=== PATIENT | male | born 1980 | race Two or more races ===

== ENCOUNTER 2019-11-02 23:33 | Inpatient (IN) | payer MEDICAID, OTHER ==
[~2019-11-02] VITALS: Ht 165.1 cm; Wt 93.8 kg
[2019-11-03] MEDS ORDERED: cloNIDine HCL 0.1 MG TAB PO ONE
[2019-11-03 00:59] LABS: Basophils # (auto) 0.1 10 ^3/uL (0-0.2); Basophils % (auto) 0.9 % (0.0-2.0); Eosinophils # (auto) 0.3 10 ^3/uL (0-0.8); Eosinophils % (auto) 3.1 % (0.0-7.0); Hematocrit 45.3 % (41.0-53.0); Hemoglobin 15.1 g/dL (13.5-17.5); Lymphocytes # (auto) 2.9 10 ^3/uL (0.4-5.4); Lymphocytes % (auto) 31.2 % (10.0-50.0); Mean Corpuscular Hemoglobin 27.8 pg (28.0-32.0); Mean Corpuscular Hgb Conc. 33.2 g/dL (32.0-36.0); Mean Corpuscular Volume 83.6 fL (80.0-100.0); Monocytes # (auto) 0.6 10 ^3/uL (0-1.3); Monocytes % (auto) 6.1 % (0.0-12.0); Neutrophils # (auto) 5.5 10 ^3/uL (1.6-8.6); Neutrophils % (auto) 58.7 % (37.0-80.0); Nucleated Red Blood Cells % 0.2 %; Platelet Count (auto) 247 10^3/uL (140-450); Red Blood Cells 5.42 10^6/uL (4.5-5.90); Red Cell Distribution Width 13.5 % (11.8-14.3); White Blood Cell 9.3 10^3/uL (4.4-10.8)
[2019-11-03 01:10] LABS: Alanine Aminotransferase 37 U/L (16-61); Albumin 3.3 g/dL (3.4-5.0); Anion Gap 7 (5-15); Aspartate Aminotransferase 19 U/L (15-37); BUN/Creatinine Ratio 24.8; Blood Urea Nitrogen 25 mg/dL (7-18); Calcium 8.4 mg/dL (8.5-10.1); Carbon Dioxide 26 mmol/L (21-32); Chloride 106 mmol/L (98-107); GFR African American 105 mL/min; GFR Non-African American 87 mL/min; Glucose 117 mg/dL (74-106); Magnesium 2.3 mg/dL (1.6-2.6); Potassium 3.3 mmol/L (3.5-5.1); Sodium 139 mmol/L (136-145)
[2019-11-03 01:15] LABS: Alkaline Phosphatase 78 U/L (45-117); Bilirubin, Total 0.6 mg/dL (0.2-1.0); Total Protein 7.1 g/dL (6.4-8.2)
[2019-11-03] MEDS ORDERED: ASPirin 81 mg TAB PO ONE (01:15)
[2019-11-03] MEDS ORDERED: MORPHINE SULFATE 4 MG/ML SYR/VIAL IV ONE (01:15)
[2019-11-03] MEDS ORDERED: ONDANSETRON HCL 4 MG/2 ML VIAL IV ONE (01:15)
[2019-11-03 01:44] LABS: INR 1.04 (0.9-1.15); Partial Thromboplastin Time 23.6 sec (23.64-32.05)
[2019-11-03] MEDS ORDERED: levoFLOXacin 250 MG TAB PO ONE (05:00)
[2019-11-03] MEDS ORDERED: ACETAMINOPHEN 325 MG TAB PO PRN (06:00)
[2019-11-03] MEDS ORDERED: NITROGLYCERIN 0.4 MG SL TAB SL PRN (06:00)
[2019-11-03] MEDS ORDERED: DOCUSATE SOD 100 MG CAP PO PRN (06:00)
[2019-11-03] MEDS ORDERED: IPRATROPIUM BROM 0.5 MG/2.5ML INH SOL NEB PRN (06:00)
[2019-11-03] MEDS ORDERED: ALBUTEROL SULF 2.5 MG/0.5ML(0.5%) NEB SOLN NEB PRN (06:00)
[2019-11-03] MEDS ORDERED: DEXTROSE (50%) 50ML SYRG IV PRN ×3 (06:00→16:30)
[2019-11-03] MEDS ORDERED: ONDANSETRON HCL 4 MG/2 ML VIAL IV PRN (06:00)
[2019-11-03] MEDS ORDERED: MORPHINE SULF INJ 2 MG/ML SYRINGE 1ML IV PRN ×2 (06:00)
[2019-11-03 08:06] LABS: Potassium 3.4 mmol/L (3.5-5.1)
[2019-11-03 08:18] LABS: BUN/Creatinine Ratio 27.9; Calcium 8.4 mg/dL (8.5-10.1)
[2019-11-03 08:27] LABS: Basophils # (auto) 0 10 ^3/uL (0-0.2); Basophils % (auto) 0.4 % (0.0-2.0); Eosinophils # (auto) 0.1 10 ^3/uL (0-0.8); Eosinophils % (auto) 1.2 % (0.0-7.0); Hematocrit 42.2 % (41.0-53.0); Hemoglobin 14.4 g/dL (13.5-17.5); Lymphocytes # (auto) 1.1 10 ^3/uL (0.4-5.4); Mean Corpuscular Hemoglobin 28.5 pg (28.0-32.0); Mean Corpuscular Hgb Conc. 34.2 g/dL (32.0-36.0); Mean Corpuscular Volume 83.4 fL (80.0-100.0); Monocytes # (auto) 0.3 10 ^3/uL (0-1.3); Monocytes % (auto) 4.5 % (0.0-12.0); Neutrophils # (auto) 5.5 10 ^3/uL (1.6-8.6); Neutrophils % (auto) 77.9 % (37.0-80.0); Nucleated Red Blood Cells % 0.1 %; Platelet Count (auto) 224 10^3/uL (140-450); Red Blood Cells 5.06 10^6/uL (4.5-5.90); Red Cell Distribution Width 13.7 % (11.8-14.3)
[2019-11-03] MEDS: InsuLIN REG 1unit/0.01ml Soln (100units/ml) SC SCH ×4 (09:25→22:00)
[2019-11-03] MEDS: ACCU-CHEK COMFORT CURVE STRIP VI SCH ×4 (09:25→22:09)
[2019-11-03] MEDS: cefTRIAXone 1GM/50ML D5W 50 ML IV SCH (10:47)
[2019-11-03] MEDS: FUROSEMIDE 40 MG/4 ML VIAL IV SCH (10:49)
[2019-11-03 15:31] VITALS: BP 132/78
[2019-11-03] MEDS ORDERED: POTASSIUM EFFERVESENT TAB 25 MEQ PO ONE ×2 (16:00)
[2019-11-03] MEDS ORDERED: amLODIPine BESYLATE 5 MG TAB PO ONE (16:00)
[2019-11-03] MEDS ORDERED: cloNIDine HCL 0.1 MG TAB PO PRN (16:00)
[2019-11-03] MEDS ORDERED: FUROSEMIDE 40 MG/4 ML VIAL IV ONE (16:00)
[2019-11-03 16:04] VITALS: BP 135/79
[2019-11-03] MEDS ORDERED: InsuLIN REG 1unit/0.01ml Soln (100units/ml) SC SCH (17:00)
[2019-11-03] MEDS ORDERED: ACCU-CHEK COMFORT CURVE STRIP VI SCH (17:00)
[2019-11-03 17:22] VITALS: BP 135/79
[2019-11-03 19:36] VITALS: BP 128/97
[2019-11-03 22:00] VITALS: BP 134/97
[2019-11-04 02:17] LABS: Urine Bacteria NONE SEEN /hpf (None Seen); Urine Blood Negative /uL (Negative); Urine Specific Gravity 1.009 (1.001-1.035); Urine WBC <1 /hpf (0 - 3)
[2019-11-04 02:50] LABS: Alcohol, Urine < 3.0 mg/dL (0-10); Amphetamine Screen, Urine NEGATIVE (NEGATIVE); Barbiturate Scree,Urine NEGATIVE (NEGATIVE); Benzodiazephine Screen, Urine NEGATIVE (NEGATIVE); Cannabinoid Screen, Urine NEGATIVE (NEGATIVE); Cocaine Screen, Urine NEGATIVE (NEGATIVE); Opiate Scree,Urine NEGATIVE (NEGATIVE); Phencyclidine Screen, Urine NEGATIVE (NEGATIVE)
[2019-11-04 05:00] VITALS: BP 124/89
[2019-11-04 05:50] LABS: Basophils # (auto) 0.1 10 ^3/uL (0-0.2); Basophils % (auto) 0.9 % (0.0-2.0); Eosinophils # (auto) 0.2 10 ^3/uL (0-0.8); Eosinophils % (auto) 2.4 % (0.0-7.0); Hematocrit 42.7 % (41.0-53.0); Hemoglobin 14.4 g/dL (13.5-17.5); Lymphocytes # (auto) 2.7 10 ^3/uL (0.4-5.4); Lymphocytes % (auto) 30.9 % (10.0-50.0); Mean Corpuscular Hgb Conc. 33.7 g/dL (32.0-36.0); Monocytes # (auto) 0.6 10 ^3/uL (0-1.3); Monocytes % (auto) 7.2 % (0.0-12.0); Neutrophils # (auto) 5.2 10 ^3/uL (1.6-8.6); Neutrophils % (auto) 58.6 % (37.0-80.0); Nucleated Red Blood Cells % 0.2 %; Platelet Count (auto) 231 10^3/uL (140-450); Red Blood Cells 5.14 10^6/uL (4.5-5.90); Red Cell Distribution Width 13.9 % (11.8-14.3); White Blood Cell 8.9 10^3/uL (4.4-10.8)
[2019-11-04 06:14] LABS: Anion Gap 6 (5-15); Blood Urea Nitrogen 17 mg/dL (7-18); Calcium 8.7 mg/dL (8.5-10.1); Carbon Dioxide 28 mmol/L (21-32); Chloride 104 mmol/L (98-107); Glucose 100 mg/dL (74-106); Potassium 3.3 mmol/L (3.5-5.1); Sodium 138 mmol/L (136-145)
[2019-11-04 06:16] LABS: BUN/Creatinine Ratio 17.9; GFR African American 113 mL/min; GFR Non-African American 93 mL/min
[2019-11-04] MEDS: InsuLIN REG 1unit/0.01ml Soln (100units/ml) SC SCH ×2 (06:21→11:26)
[2019-11-04] MEDS: ACCU-CHEK COMFORT CURVE STRIP VI SCH ×4 (06:21→21:45)
[2019-11-04] MEDS: cefTRIAXone 1GM/50ML D5W 50 ML IV SCH (08:32)
[2019-11-04] MEDS: HYDROcodone-ACET 5/325MG TAB PO PRN ×2 (08:32→16:45)
[2019-11-04] MEDS: FUROSEMIDE 40 MG/4 ML VIAL IV SCH (08:32)
[2019-11-04] MEDS: POTASSIUM CHL 10 Meq TABLET PO SCH (08:33)
[2019-11-04 09:00] VITALS: BP 118/76
[2019-11-04] MEDS ORDERED: amLODIPine BESYLATE 5 MG TAB PO SCH (10:00)
[2019-11-04 13:00] VITALS: BP 113/83
[2019-11-04] MEDS ORDERED: POTASSIUM EFFERVESENT TAB 25 MEQ PO ONE (15:45)
[2019-11-04 17:00] VITALS: BP 117/83
[2019-11-04 20:00] VITALS: BP 111/82
[2019-11-04] MEDS: TROLAMINE SALICYLATE 10% TOP CREAM TOP SCH (21:45)
[2019-11-04 22:13] VITALS: BP 117/81
[2019-11-05] VITALS (7 sets, daily range): BP systolic 112–132; BP diastolic 74–91
[2019-11-05] MEDS: HYDROcodone-ACET 5/325MG TAB PO PRN ×2 (00:07→15:12)
[2019-11-05] MEDS: ACCU-CHEK COMFORT CURVE STRIP VI SCH ×4 (06:23→21:18)
[2019-11-05 06:24] LABS: Basophils # (auto) 0.1 10 ^3/uL (0-0.2); Basophils % (auto) 1.1 % (0.0-2.0); Eosinophils # (auto) 0.4 10 ^3/uL (0-0.8); Eosinophils % (auto) 4.7 % (0.0-7.0); Hematocrit 42.9 % (41.0-53.0); Hemoglobin 14.5 g/dL (13.5-17.5); Lymphocytes # (auto) 2.9 10 ^3/uL (0.4-5.4); Lymphocytes % (auto) 35.7 % (10.0-50.0); Mean Corpuscular Hemoglobin 28.2 pg (28.0-32.0); Mean Corpuscular Hgb Conc. 33.8 g/dL (32.0-36.0); Mean Corpuscular Volume 83.3 fL (80.0-100.0); Monocytes # (auto) 0.6 10 ^3/uL (0-1.3); Monocytes % (auto) 7.9 % (0.0-12.0); Neutrophils # (auto) 4.1 10 ^3/uL (1.6-8.6); Neutrophils % (auto) 50.6 % (37.0-80.0); Nucleated Red Blood Cells % 0.2 %; Platelet Count (auto) 223 10^3/uL (140-450); Red Blood Cells 5.15 10^6/uL (4.5-5.90); Red Cell Distribution Width 13.8 % (11.8-14.3); White Blood Cell 8.1 10^3/uL (4.4-10.8)
[2019-11-05 06:56] LABS: Potassium 3.4 mmol/L (3.5-5.1)
[2019-11-05 07:02] LABS: BUN/Creatinine Ratio 20.2; Calcium 8.7 mg/dL (8.5-10.1)
[2019-11-05] MEDS ORDERED: ADENOSINE 79 MG in GIVE UN-DILUTED 0 ML IV STA (08:14)
[2019-11-05] MEDS: POTASSIUM CHL 10 Meq TABLET PO SCH (08:59)
[2019-11-05] MEDS: cefTRIAXone 1GM/50ML D5W 50 ML IV SCH (09:00)
[2019-11-05] MEDS: FUROSEMIDE 40 MG/4 ML VIAL IV SCH (09:05)
[2019-11-05] MEDS ORDERED: CLOPIDOGREL BISULFATE 75 MG TAB PO ONE (12:30)
[2019-11-05] MEDS ORDERED: ASPirin 81 mg TAB PO ONE (12:30)
[2019-11-05] MEDS ORDERED: POTASSIUM EFFERVESENT TAB 25 MEQ PO ONE (13:45)
[2019-11-05] MEDS: TROLAMINE SALICYLATE 10% TOP CREAM TOP SCH ×2 (14:00→21:18)
[2019-11-05] MEDS: ATORVASTATIN 20 MG TAB PO SCH (21:17)
[2019-11-05] MEDS: CARVEDILOL 3.125 MG TAB PO SCH (21:18)
[2019-11-06 02:57] VITALS: BP 112/76
[2019-11-06 05:00] VITALS: BP 109/79
[2019-11-06] MEDS: ACCU-CHEK COMFORT CURVE STRIP VI SCH ×4 (05:46→21:30)
[2019-11-06 06:25] LABS: Basophils # (auto) 0.1 10 ^3/uL (0-0.2); Basophils % (auto) 0.7 % (0.0-2.0); Eosinophils # (auto) 0.3 10 ^3/uL (0-0.8); Eosinophils % (auto) 3.5 % (0.0-7.0); Hematocrit 42.6 % (41.0-53.0); Hemoglobin 14.5 g/dL (13.5-17.5); Lymphocytes # (auto) 2.5 10 ^3/uL (0.4-5.4); Lymphocytes % (auto) 30.8 % (10.0-50.0); Mean Corpuscular Hemoglobin 28.3 pg (28.0-32.0); Mean Corpuscular Hgb Conc. 34.1 g/dL (32.0-36.0); Mean Corpuscular Volume 82.9 fL (80.0-100.0); Monocytes # (auto) 0.7 10 ^3/uL (0-1.3); Monocytes % (auto) 8.3 % (0.0-12.0); Neutrophils # (auto) 4.7 10 ^3/uL (1.6-8.6); Neutrophils % (auto) 56.7 % (37.0-80.0); Nucleated Red Blood Cells % 0.1 %; Platelet Count (auto) 232 10^3/uL (140-450); Red Blood Cells 5.14 10^6/uL (4.5-5.90); Red Cell Distribution Width 13.5 % (11.8-14.3); White Blood Cell 8.2 10^3/uL (4.4-10.8)
[2019-11-06 06:47] LABS: Potassium 3.7 mmol/L (3.5-5.1)
[2019-11-06 06:53] LABS: BUN/Creatinine Ratio 21.7; Calcium 8.9 mg/dL (8.5-10.1)
[2019-11-06 08:59] VITALS: BP 113/82
[2019-11-06] MEDS: ASPirin 81 mg TAB PO SCH (09:28)
[2019-11-06] MEDS: cefTRIAXone 1GM/50ML D5W 50 ML IV SCH (09:28)
[2019-11-06] MEDS: FUROSEMIDE 40 MG/4 ML VIAL IV SCH (09:28)
[2019-11-06] MEDS: ENALAPRIL MALEATE 2.5 MG TAB PO SCH (09:29)
[2019-11-06] MEDS: CLOPIDOGREL BISULFATE 75 MG TAB PO SCH (09:29)
[2019-11-06] MEDS: POTASSIUM CHL 10 Meq TABLET PO SCH (09:29)
[2019-11-06] MEDS: CARVEDILOL 3.125 MG TAB PO SCH ×2 (09:29→21:30)
[2019-11-06] MEDS: TROLAMINE SALICYLATE 10% TOP CREAM TOP SCH ×2 (09:30→21:30)
[2019-11-06 12:45] VITALS: BP 110/77
[2019-11-06 17:06] VITALS: BP 122/84
[2019-11-06] MEDS: ATORVASTATIN 20 MG TAB PO SCH (21:30)
[2019-11-06 22:00] VITALS: BP 122/86
[2019-11-07] VITALS (12 sets, daily range): BP systolic 104–135; BP diastolic 69–98
[2019-11-07 06:04] LABS: Basophils # (auto) 0.1 10 ^3/uL (0-0.2); Basophils % (auto) 1.2 % (0.0-2.0); Eosinophils # (auto) 0.3 10 ^3/uL (0-0.8); Eosinophils % (auto) 3.8 % (0.0-7.0); Hematocrit 44.8 % (41.0-53.0); Hemoglobin 15.3 g/dL (13.5-17.5); Lymphocytes # (auto) 2.7 10 ^3/uL (0.4-5.4); Lymphocytes % (auto) 32.5 % (10.0-50.0); Mean Corpuscular Hemoglobin 28.1 pg (28.0-32.0); Mean Corpuscular Volume 82.5 fL (80.0-100.0); Monocytes # (auto) 0.5 10 ^3/uL (0-1.3); Monocytes % (auto) 6.4 % (0.0-12.0); Neutrophils # (auto) 4.7 10 ^3/uL (1.6-8.6); Neutrophils % (auto) 56.1 % (37.0-80.0); Nucleated Red Blood Cells % 0.2 %; Platelet Count (auto) 252 10^3/uL (140-450); Red Blood Cells 5.43 10^6/uL (4.5-5.90); Red Cell Distribution Width 13.4 % (11.8-14.3); White Blood Cell 8.4 10^3/uL (4.4-10.8)
[2019-11-07 06:13] LABS: INR 1.09 (0.9-1.15); Partial Thromboplastin Time 24.1 sec (23.64-32.05)
[2019-11-07] MEDS: ACCU-CHEK COMFORT CURVE STRIP VI SCH ×4 (06:19→21:47)
[2019-11-07 06:27] LABS: Potassium 3.5 mmol/L (3.5-5.1)
[2019-11-07 06:33] LABS: BUN/Creatinine Ratio 21.8; Calcium 9.3 mg/dL (8.5-10.1)
[2019-11-07] MEDS: ASPirin 81 mg TAB PO SCH (08:40)
[2019-11-07] MEDS: CARVEDILOL 3.125 MG TAB PO SCH ×2 (08:40→21:47)
[2019-11-07] MEDS: CLOPIDOGREL BISULFATE 75 MG TAB PO SCH (08:41)
[2019-11-07] MEDS: ENALAPRIL MALEATE 2.5 MG TAB PO SCH (08:41)
[2019-11-07] MEDS: POTASSIUM CHL 10 Meq TABLET PO SCH (08:41)
[2019-11-07] MEDS: FUROSEMIDE 40 MG/4 ML VIAL IV SCH (08:41)
[2019-11-07] MEDS: TROLAMINE SALICYLATE 10% TOP CREAM TOP SCH ×2 (09:53→21:47)
[2019-11-07] MEDS ORDERED: IOHEXOL 350 MG/ML 100ML IJ ONE (15:50)
[2019-11-07] MEDS ORDERED: ANGIOMAX 250 MG VIAL IV ONE (15:51)
[2019-11-07] MEDS ORDERED: fentaNYL CITRATE 100 MCG/2 ML VL ONE (15:51)
[2019-11-07] MEDS ORDERED: LIDOCAINE 2%HCL (LOCAL ANESTH.) INJ 20ML MDV ONE (15:51)
[2019-11-07] MEDS ORDERED: MIDAZOLAM HCL 1MG/1ML-2 ML VIAL ONE (15:52)
[2019-11-07] MEDS ORDERED: VERAPAMIL 2.5MG/ML INJ 2ML VIAL IV ONE (16:01)
[2019-11-07] MEDS ORDERED: HEPARIN SODIUM (PORCINE) 5000 UNITS/ML 1ML VIAL ONE (16:01)
[2019-11-07] MEDS ORDERED: HYDROmorphone HCL 2 MG/ML VL ONE (17:01)
[2019-11-07] MEDS: HYDROcodone-ACET 5/325MG TAB PO PRN (21:46)
[2019-11-07] MEDS: ATORVASTATIN 20 MG TAB PO SCH (21:46)
[2019-11-08] VITALS (7 sets, daily range): BP systolic 95–147; BP diastolic 67–92
[2019-11-08 06:25] LABS: Basophils # (auto) 0 10 ^3/uL (0-0.2); Basophils % (auto) 0.5 % (0.0-2.0); Eosinophils # (auto) 0.2 10 ^3/uL (0-0.8); Eosinophils % (auto) 2.6 % (0.0-7.0); Hematocrit 43.4 % (41.0-53.0); Hemoglobin 14.7 g/dL (13.5-17.5); Lymphocytes # (auto) 1.7 10 ^3/uL (0.4-5.4); Lymphocytes % (auto) 25.8 % (10.0-50.0); Mean Corpuscular Hgb Conc. 33.8 g/dL (32.0-36.0); Monocytes # (auto) 0.4 10 ^3/uL (0-1.3); Monocytes % (auto) 6.7 % (0.0-12.0); Neutrophils # (auto) 4.3 10 ^3/uL (1.6-8.6); Neutrophils % (auto) 64.4 % (37.0-80.0); Nucleated Red Blood Cells % 0.1 %; Platelet Count (auto) 232 10^3/uL (140-450); Red Blood Cells 5.23 10^6/uL (4.5-5.90); Red Cell Distribution Width 13.6 % (11.8-14.3); White Blood Cell 6.6 10^3/uL (4.4-10.8)
[2019-11-08] MEDS: ACCU-CHEK COMFORT CURVE STRIP VI SCH ×4 (06:29→21:33)
[2019-11-08 06:53] LABS: Potassium 3.7 mmol/L (3.5-5.1)
[2019-11-08 07:21] LABS: BUN/Creatinine Ratio 18.7; Calcium 8.9 mg/dL (8.5-10.1)
[2019-11-08] MEDS: FUROSEMIDE 40 MG/4 ML VIAL IV SCH (10:20)
[2019-11-08] MEDS: CARVEDILOL 3.125 MG TAB PO SCH ×2 (10:20→21:32)
[2019-11-08] MEDS: ENALAPRIL MALEATE 2.5 MG TAB PO SCH (10:20)
[2019-11-08] MEDS: TROLAMINE SALICYLATE 10% TOP CREAM TOP SCH ×2 (10:20→21:31)
[2019-11-08] MEDS: ASPirin 81 mg TAB PO SCH (10:20)
[2019-11-08] MEDS: POTASSIUM CHL 10 Meq TABLET PO SCH (10:20)
[2019-11-08] MEDS: CLOPIDOGREL BISULFATE 75 MG TAB PO SCH (10:20)
[2019-11-08] MEDS ORDERED: methylPREDNISolone SOD SUCC 40 MG/ML VL IV ONE (11:15)
[2019-11-08] MEDS ORDERED: diphenhdrAMINE HCL 50 MG/1 ML VL IV ONE (11:15)
[2019-11-08] MEDS: ATORVASTATIN 20 MG TAB PO SCH (21:31)
[2019-11-09 05:00] VITALS: BP 108/68
[2019-11-09] MEDS: ACCU-CHEK COMFORT CURVE STRIP VI SCH (06:26)
[2019-11-09 08:00] VITALS: BP 119/88
[2019-11-09 08:51] VITALS: BP 119/88
[2019-11-09] MEDS: FUROSEMIDE 40 MG/4 ML VIAL IV SCH (10:45)
[2019-11-09] MEDS: ASPirin 81 mg TAB PO SCH (10:45)
[2019-11-09] MEDS: ENALAPRIL MALEATE 2.5 MG TAB PO SCH (10:45)
[2019-11-09] MEDS: CARVEDILOL 3.125 MG TAB PO SCH (10:45)
[2019-11-09] MEDS: TROLAMINE SALICYLATE 10% TOP CREAM TOP SCH (10:45)
[2019-11-09] MEDS: POTASSIUM CHL 10 Meq TABLET PO SCH (10:45)
[2019-11-09] MEDS ORDERED: ASPI81CH43 PO (11:21)
[2019-11-09] MEDS ORDERED: ATOR20TA PO (11:21)
[2019-11-09] MEDS ORDERED: CAR3125T PO (11:21)
[2019-11-09] MEDS ORDERED: POTA-220 PO (11:21)
[2019-11-09] MEDS ORDERED: ENAL2.5T PO (11:21)
[2019-11-09] MEDS ORDERED: FURO1TAB31 PO (11:21)
[2019-11-09 11:33] VITALS: BP 119/88
[2019-11-09 12:51] VITALS: BP 116/84
== END 2019-11-09 13:40 | disposition home or self-care (01) | DRG 192 ==
LOC: EDBD 23:36 → ER 23:36 → TELE 23:37 → TELE-WESTW 11-03 14:41
PROVIDERS: ADMIT Hospitalist; ATTEND Internal Medicine
PROC: 4A023N7 Measurement of Cardiac Sampling and Pressure, Left Heart, Percutaneous Approach (ICD-10-PCS; principal; 2019-11-07)
PROC: B2111ZZ Fluoroscopy of Multiple Coronary Arteries using Low Osmolar Contrast (ICD-10-PCS; 2019-11-07)
PROC: B2151ZZ Fluoroscopy of Left Heart using Low Osmolar Contrast (ICD-10-PCS; 2019-11-07)
DX: I13.0 Hypertensive heart and chronic kidney disease with heart failure and stage 1 through stage 4 chronic kidney disease, or unspecified chronic kidney disease (principal); N17.0 Acute kidney failure with tubular necrosis; I50.43 Acute on chronic combined systolic (congestive) and diastolic (congestive) heart failure; I42.0 Dilated cardiomyopathy; E11.22 Type 2 diabetes mellitus with diabetic chronic kidney disease; I16.0 Hypertensive urgency; E87.6 Hypokalemia; E11.65 Type 2 diabetes mellitus with hyperglycemia; E66.9 Obesity, unspecified; N18.9 Chronic kidney disease, unspecified; E78.1 Pure hyperglyceridemia; Z20.828 Contact with and (suspected) exposure to other viral communicable diseases; I25.10 Atherosclerotic heart disease of native coronary artery without angina pectoris; E78.5 Hyperlipidemia, unspecified; Z83.3 Family history of diabetes mellitus; Z91.14 Patient's other noncompliance with medication regimen; Z80.1 Family history of malignant neoplasm of trachea, bronchus and lung; Z68.34 Body mass index [BMI] 34.0-34.9, adult; Z91.041 Radiographic dye allergy status; Z79.899 Other long term (current) drug therapy
CPT/HCPCS: 36415; 70450; 71045; 78452; 80048; 80053; 80061; 80307; 81001; 82962; 83036; 83605; 83735; 83880; 84443; 84484; 85025; 85610; 85730; 87040; 87070; 87804; 87880; 93005; 93017; 93306; 93458; 94640; 96365; 96375; 99152; 99153; G0378; J0153; J0696; J2250; J2405

== ENCOUNTER 2020-02-27 11:15 | Inpatient (IN) | payer MEDICAID ==
[~2020-02-27] VITALS: Ht 165.1 cm; Wt 93.8 kg
[~2020-02-27 11:15] MED LIST: ASPI81CH43 PO; ATOR20TA PO; CAR3125T PO; ENAL2.5T7 PO; FURO1TAB31 PO; POTA-220 PO
[2020-02-27 11:46] LABS: Basophils # (auto) 0 10 ^3/uL (0-0.2); Basophils % (auto) 0.4 % (0.0-2.0); Eosinophils # (auto) 0.3 10 ^3/uL (0-0.8); Eosinophils % (auto) 3.3 % (0.0-7.0); Hematocrit 41.4 % (41.0-53.0); Hemoglobin 14.2 g/dL (13.5-17.5); Lymphocytes # (auto) 2.7 10 ^3/uL (0.4-5.4); Lymphocytes % (auto) 34.6 % (10.0-50.0); Mean Corpuscular Hemoglobin 28.4 pg (28.0-32.0); Mean Corpuscular Hgb Conc. 34.3 g/dL (32.0-36.0); Mean Corpuscular Volume 82.8 fL (80.0-100.0); Monocytes # (auto) 0.5 10 ^3/uL (0-1.3); Monocytes % (auto) 6.3 % (0.0-12.0); Neutrophils # (auto) 4.3 10 ^3/uL (1.6-8.6); Neutrophils % (auto) 55.4 % (37.0-80.0); Nucleated Red Blood Cells % 0.2 %; Platelet Count (auto) 234 10^3/uL (140-450); White Blood Cell 7.8 10^3/uL (4.4-10.8)
[2020-02-27 12:14] LABS: Calcium 9.1 mg/dL (8.5-10.1); Chloride 102 mmol/L (98-107); Potassium 3.4 mmol/L (3.5-5.1); Sodium 136 mmol/L (136-145)
[2020-02-27 12:23] LABS: Alanine Aminotransferase 41 U/L (16-61); Albumin 4.1 g/dL (3.4-5.0); Alkaline Phosphatase 77 U/L (45-117); Anion Gap 5 (5-15); Aspartate Aminotransferase 18 U/L (15-37); BUN/Creatinine Ratio 20.2; Bilirubin, Total 0.8 mg/dL (0.2-1.0); Blood Urea Nitrogen 19 mg/dL (7-18); Carbon Dioxide 29 mmol/L (21-32); GFR African American 114 mL/min; GFR Non-African American 94 mL/min; Glucose 185 mg/dL (74-106); Magnesium 2.4 mg/dL (1.6-2.6); Total Protein 7.9 g/dL (6.4-8.2)
[2020-02-27] MEDS ORDERED: FUROSEMIDE 40 MG/4 ML VIAL IV ONE (16:30)
[2020-02-27] MEDS ORDERED: NITROGLYCERIN 0.4 MG SL TAB SL PRN (16:45)
[2020-02-27] MEDS ORDERED: MORPHINE SULF INJ 2 MG/ML SYRINGE 1ML IV PRN ×2 (16:45→21:00)
[2020-02-27] MEDS ORDERED: IOHEXOL 350 MG/ML 100ML IJ ONE (17:01)
[2020-02-27] MEDS ORDERED: LISI-646 PO (18:26)
[2020-02-27] MEDS ORDERED: METO-169 PO (18:26)
[2020-02-27] MEDS ORDERED: SPIR50TA5 PO (18:26)
[2020-02-27] MEDS ORDERED: ATOR40TA52 PO (18:27)
[2020-02-27] MEDS ORDERED: ACETAMINOPHEN 325 MG TAB PO PRN (20:45)
[2020-02-27] MEDS ORDERED: LORazepam 0.5 MG TAB PO PRN (20:45)
[2020-02-27] MEDS ORDERED: ONDANSETRON HCL 4 MG/2 ML VIAL IV PRN (20:45)
[2020-02-27] MEDS ORDERED: hydrALAZINE HCL 25 MG TAB PO PRN (20:45)
[2020-02-27] MEDS ORDERED: ALUM & MAG HYDROX-SIMETH LIQ(MAALOX) 30 ML PO ONE (20:45)
[2020-02-27 20:50] VITALS: BP 117/85
[2020-02-27] MEDS ORDERED: POTASSIUM CHL 20 Meq TABLET PO ONE (21:00)
[2020-02-27 22:08] VITALS: BP 117/85
[2020-02-27] MEDS: ATORVASTATIN 20 MG TAB PO SCH (22:36)
[2020-02-28] MEDS: FUROSEMIDE 20 MG/2 ML VIAL IV SCH ×2 (05:21→17:10)
[2020-02-28 05:27] VITALS: BP 118/76
[2020-02-28 08:00] VITALS: BP 118/76
[2020-02-28 09:00] VITALS: BP 117/69
[2020-02-28] MEDS: POTASSIUM CHL 20 Meq TABLET PO SCH (09:40)
[2020-02-28] MEDS: DOCUSATE SOD 100 MG CAP PO SCH (09:40)
[2020-02-28] MEDS: METOPROLOL SUCCINATE XL 50 MG TAB PO SCH (09:41)
[2020-02-28] MEDS: ASPirin 81 mg TAB PO SCH (09:41)
[2020-02-28] MEDS ORDERED: LISINOPRIL 5 MG TAB PO SCH (10:00)
[2020-02-28] MEDS ORDERED: SPIRONOLACTONE 25 MG TAB PO SCH (10:00)
[2020-02-28 12:51] VITALS: BP 127/80
[2020-02-28] MEDS: ENOXAPARIN SOD 40 MG/0.4 ML SYRINGE SC SCH (13:41)
[2020-02-28 16:38] VITALS: BP 105/70
[2020-02-28 21:57] VITALS: BP 117/60
[2020-02-28] MEDS: ATORVASTATIN 20 MG TAB PO SCH (22:59)
[2020-02-29 05:00] VITALS: BP 113/74
[2020-02-29 07:36] VITALS: BP 118/76
[2020-02-29 09:00] VITALS: BP 107/68
[2020-02-29] MEDS: ASPirin 81 mg TAB PO SCH (09:51)
[2020-02-29] MEDS: DOCUSATE SOD 100 MG CAP PO SCH (09:51)
[2020-02-29] MEDS: POTASSIUM CHL 20 Meq TABLET PO SCH (09:51)
[2020-02-29] MEDS: ENOXAPARIN SOD 40 MG/0.4 ML SYRINGE SC SCH (09:51)
[2020-02-29] MEDS: METOPROLOL SUCCINATE XL 50 MG TAB PO SCH (10:09)
[2020-02-29 13:00] VITALS: BP 123/76
[2020-02-29 16:52] VITALS: BP 114/80
[2020-02-29] MEDS: SACUBITRIL-VALSARTAN 24mg/26mg TAB PO SCH (21:29)
[2020-02-29] MEDS: ATORVASTATIN 20 MG TAB PO SCH (21:30)
[2020-02-29 22:00] VITALS: BP 105/68
[2020-03-01 05:00] VITALS: BP 100/69
[2020-03-01 05:56] LABS: Basophils # (auto) 0 10 ^3/uL (0-0.2); Basophils % (auto) 0.5 % (0.0-2.0); Eosinophils # (auto) 0.4 10 ^3/uL (0-0.8); Eosinophils % (auto) 4.3 % (0.0-7.0); Hematocrit 39.8 % (41.0-53.0); Lymphocytes % (auto) 34.6 % (10.0-50.0); Mean Corpuscular Hemoglobin 29.1 pg (28.0-32.0); Mean Corpuscular Hgb Conc. 35.1 g/dL (32.0-36.0); Mean Corpuscular Volume 82.9 fL (80.0-100.0); Monocytes # (auto) 0.7 10 ^3/uL (0-1.3); Monocytes % (auto) 8.3 % (0.0-12.0); Neutrophils # (auto) 4.6 10 ^3/uL (1.6-8.6); Neutrophils % (auto) 52.3 % (37.0-80.0); Nucleated Red Blood Cells % 0.1 %; Platelet Count (auto) 234 10^3/uL (140-450); Red Blood Cells 4.81 10^6/uL (4.5-5.90); Red Cell Distribution Width 14.7 % (11.8-14.3); White Blood Cell 8.8 10^3/uL (4.4-10.8)
[2020-03-01 06:16] LABS: Potassium 3.8 mmol/L (3.5-5.1)
[2020-03-01 06:26] LABS: BUN/Creatinine Ratio 19.8; Calcium 9.3 mg/dL (8.5-10.1)
[2020-03-01 08:00] VITALS: BP 109/70
[2020-03-01] MEDS: SACUBITRIL-VALSARTAN 24mg/26mg TAB PO SCH (10:00)
[2020-03-01] MEDS: METOPROLOL SUCCINATE XL 50 MG TAB PO SCH (10:00)
[2020-03-01] MEDS: DOCUSATE SOD 100 MG CAP PO SCH (11:22)
[2020-03-01] MEDS: ENOXAPARIN SOD 40 MG/0.4 ML SYRINGE SC SCH (11:22)
[2020-03-01] MEDS: ASPirin 81 mg TAB PO SCH (11:22)
[2020-03-01 12:00] VITALS: BP 118/83
[2020-03-01 12:04] VITALS: BP 107/68
[2020-03-01] MEDS ORDERED: LISI-646 PO (13:05)
[2020-03-01] MEDS ORDERED: ATOR40TA52 PO (13:05)
[2020-03-01] MEDS ORDERED: METO-6 PO (13:05)
== END 2020-03-01 14:45 | disposition home or self-care (01) | DRG 203 ==
LOC: ER 11:15 → TELE 11:16 → TELE-CENTR 20:44
PROVIDERS: ADMIT Hospitalist; ATTEND Internal Medicine Nephrology
DX: R07.9 Chest pain, unspecified (principal); I11.0 Hypertensive heart disease with heart failure; I50.22 Chronic systolic (congestive) heart failure; I42.8 Other cardiomyopathies; E66.01 Morbid (severe) obesity due to excess calories; I31.3 Pericardial effusion (noninflammatory); E78.5 Hyperlipidemia, unspecified; E78.1 Pure hyperglyceridemia; Z91.14 Patient's other noncompliance with medication regimen; Z68.34 Body mass index [BMI] 34.0-34.9, adult; Z82.49 Family history of ischemic heart disease and other diseases of the circulatory system
CPT/HCPCS: 36415; 71046; 71275; 80048; 80053; 83735; 83880; 84132; 84443; 84484; 85025; 93306; 96374; G0378

== ENCOUNTER 2022-01-01 16:11 | Emergency (ER) | payer MEDICAID ==
[~2022-01-01] VITALS: Ht 165.1 cm; Wt 90.0 kg
[~2022-01-01 16:11] MED LIST changes: -ASPI81CH43 PO; -ATOR20TA PO; +ATOR40TA52 PO; -CAR3125T PO; -ENAL2.5T7 PO; -FURO1TAB31 PO; +LISI20TA28 PO; +METO-289 PO; +METO-6 PO; -POTA-220 PO; +SPIR50TA5 PO
[2022-01-01] MEDS ORDERED: ASPirin 81 mg TAB PO ONE (17:15)
[2022-01-01 18:09] LABS: Basophils # (auto) 0.1 10 ^3/uL (0-0.2); Basophils % (auto) 0.6 % (0.0-2.0); Eosinophils # (auto) 0.4 10 ^3/uL (0-0.8); Eosinophils % (auto) 4.2 % (0.0-7.0); Hematocrit 49.4 % (41.0-53.0); Hemoglobin 16.3 g/dL (13.5-17.5); Lymphocytes # (auto) 3.3 10 ^3/uL (0.4-5.4); Lymphocytes % (auto) 32.5 % (10.0-50.0); Mean Corpuscular Hemoglobin 27.5 pg (28.0-32.0); Mean Corpuscular Volume 83.2 fL (80.0-100.0); Monocytes # (auto) 0.7 10 ^3/uL (0-1.3); Monocytes % (auto) 7.4 % (0.0-12.0); Neutrophils # (auto) 5.5 10 ^3/uL (1.6-8.6); Neutrophils % (auto) 55.3 % (37.0-80.0); Nucleated Red Blood Cells % 0.1 %; Red Blood Cells 5.93 10^6/uL (4.5-5.90); Red Cell Distribution Width 13.5 % (11.8-14.3)
[2022-01-01 18:33] LABS: Calcium 9.3 mg/dL (8.5-10.1); Magnesium 2.5 mg/dL (1.6-2.6); Potassium 3.6 mmol/L (3.5-5.1)
[2022-01-01 18:35] LABS: Bilirubin, Total 0.7 mg/dL (0.2-1.0); Total Protein 7.9 g/dL (6.4-8.2)
[2022-01-01] MEDS ORDERED: ONDANSETRON HCL 4 MG/2 ML VIAL IV ONE (19:30)
[2022-01-01] MEDS ORDERED: MORPHINE SULFATE 4 MG/ML SYR/VIAL IV ONE (19:30)
[2022-01-01 20:09] VITALS: BP 132/89
== END 2022-01-01 20:12 | disposition home or self-care (01) ==
LOC: ER 16:11
DX: I24.9 Acute ischemic heart disease, unspecified (principal); R07.89 Other chest pain; E78.5 Hyperlipidemia, unspecified; I10 Essential (primary) hypertension
CPT/HCPCS: 36415; 71046; 80053; 83735; 83880; 84484; 85025; 93005

== ENCOUNTER 2022-05-28 02:26 | Emergency (ER) | payer MEDICAID ==
[~2022-05-28] VITALS: Ht 165.1 cm; Wt 95.0 kg
[2022-05-28 03:41] LABS: Basophils # (auto) 0 10 ^3/uL (0-0.2); Basophils % (auto) 0.6 % (0.0-2.0); Eosinophils # (auto) 0.3 10 ^3/uL (0-0.8); Eosinophils % (auto) 3.7 % (0.0-7.0); Hematocrit 50.5 % (41.0-53.0); Hemoglobin 16.9 g/dL (13.5-17.5); Lymphocytes # (auto) 2.9 10 ^3/uL (0.4-5.4); Lymphocytes % (auto) 33.7 % (10.0-50.0); Mean Corpuscular Hemoglobin 27.8 pg (28.0-32.0); Mean Corpuscular Hgb Conc. 33.3 g/dL (32.0-36.0); Mean Corpuscular Volume 83.4 fL (80.0-100.0); Monocytes # (auto) 0.7 10 ^3/uL (0-1.3); Neutrophils # (auto) 4.7 10 ^3/uL (1.6-8.6); Nucleated Red Blood Cells % 0.1 %; Red Blood Cells 6.06 10^6/uL (4.5-5.90); White Blood Cell 8.7 10^3/uL (4.4-10.8)
[2022-05-28 03:46] VITALS: BP 151/95
[2022-05-28 03:56] LABS: Albumin 4.3 g/dL (3.4-5.0); Calcium 9.7 mg/dL (8.5-10.1); Potassium 3.7 mmol/L (3.5-5.1)
[2022-05-28 04:00] LABS: BUN/Creatinine Ratio 13.4; Bilirubin, Total 0.5 mg/dL (0.2-1.0); Total Protein 7.8 g/dL (6.4-8.2)
[2022-05-28] MEDS ORDERED: IBUP800T27 PO (07:09)
== END 2022-05-28 07:19 | disposition home or self-care (01) ==
LOC: ER 02:26
DX: R07.89 Other chest pain (principal); F41.9 Anxiety disorder, unspecified
CPT/HCPCS: 36415; 71045; 80053; 84484; 85025; 93005

== ENCOUNTER 2023-10-06 06:20 | Emergency (ER) | payer MEDICAID ==
[~2023-10-06] VITALS: Ht 165.1 cm; Wt 90.7 kg
[~2023-10-06 06:20] MED LIST changes: +IBUP-1456 PO; -LISI20TA28 PO; +LISI20TA56 PO
[2023-10-06 07:40] VITALS: BP 137/100; PULSE 89; RESP 18; TEMP 97.6; O2SAT 98
== END 2023-10-06 07:53 | disposition home or self-care (01) ==
LOC: ER 06:20
DX: K91.840 Postprocedural hemorrhage of a digestive system organ or structure following a digestive system procedure (principal); K06.8 Other specified disorders of gingiva and edentulous alveolar ridge; I10 Essential (primary) hypertension